=== PATIENT | male | born 1980 | race Hispanic/Latino ===

== ENCOUNTER 2018-03-28 11:37 | Emergency (ER) | payer SELFPAY ==
[2018-03-28] MEDS ORDERED: OXYMETAZOLINE HCL SPRAY 15 ML BOTTLE ONE (11:49)
== END 2018-03-28 12:14 | disposition home or self-care (01) ==
LOC: EDH 11:37
DX: R04.0 Epistaxis (principal); K74.60 Unspecified cirrhosis of liver
CPT/HCPCS: 30901

== ENCOUNTER 2018-03-30 10:53 | Emergency (ER) | payer OTHER ==
[2018-03-30] MEDS ORDERED: CHLORDIAZEPOXIDE HCL 25 MG CAP ONE (11:13)
[2018-03-30] MEDS ORDERED: LORAZEPAM 1 MG TABLET ONE (11:13)
== END 2018-03-30 12:09 | disposition home or self-care (01) ==
LOC: EDH 10:53
DX: F10.239 Alcohol dependence with withdrawal, unspecified (principal); R04.0 Epistaxis

== ENCOUNTER 2018-11-23 01:29 | Emergency (ER) | payer SELFPAY ==
[2018-11-23] MEDS ORDERED: ONDANSETRON HCL 4 MG/2 ML VIAL ONE (02:09)
[2018-11-23] MEDS ORDERED: CHLORDIAZEPOXIDE HCL 25 MG CAP ONE (02:22)
[2018-11-23] MEDS ORDERED: LORAZEPAM 2 MG/ML 1 ML VIAL ONE (02:23)
[2018-11-23 02:38] LABS: EOSINOPHILS % (AUTO) 0.4 % (0.0-8.0); HEMATOCRIT 25.9 % (42-54); LYMPHOCYTES % (AUTO) 15.8 % (21.0-51.0); MEAN CORPUSCULAR HEMOGLOBIN 23.7 pg (27.0-33.0); MEAN CORPUSCULAR HGB CONC 31.8 g/dL (32.0-36.0); MEAN CORPUSCULAR VOLUME 74.6 fL (79-99); MONOCYTES % (AUTO) 16.9 % (3.0-13.0); NEUTROPHILS % (AUTO) 65.9 % (40.0-77.0); NUCLEATED RED BLOOD CELLS 0.7 % (0.0-0.19); PLATELET COUNT (AUTO) 34 K/uL (130-400); RED BLOOD CELL COUNT(AUTO) 3.47 MIL/uL (4.50-6.20); RED CELL DISTRIBUTION WIDTH 19.2 % (11.0-15.5); WHITE BLOOD COUNT (AUTO) 3.6 K/uL (4.8-10.8)
[2018-11-23 02:48] LABS: CREATININE 1.1 mg/dL (0.5-1.5); POTASSIUM 3.1 mmol/L (3.5-5.1)
[2018-11-23 02:51] LABS: INR 1.31 (0.85-1.15); PARTIAL THROMBOPLASTIN TIME 24.7 SEC (26.3-35.5); PROTHROMBIN TIME 13.7 SEC (9.6-11.6)
[2018-11-23 02:52] LABS: ALBUMIN 3.5 g/dL (3.5-5.0); BILIRUBIN,TOTAL 1.5 mg/dL (0.2-1.0); TOTAL PROTEIN, SERUM 8.9 g/dL (6.0-8.3)
== END 2018-11-23 04:23 | disposition home or self-care (01) ==
LOC: EDH 01:29
DX: F10.129 Alcohol abuse with intoxication, unspecified (principal); E86.9 Volume depletion, unspecified; K74.60 Unspecified cirrhosis of liver; Y90.9 Presence of alcohol in blood, level not specified
CPT/HCPCS: 36415; 80053; 82550; 83605 ×2; 83690; 84484; 85025; 85610; 85730; 96361; 96374; 96375; 99283; J2060; J2405

== ENCOUNTER 2019-03-04 19:00 | Inpatient (IN) | payer OTHER ==
[~2019-03-04] VITALS: Ht 162.6 cm; Wt 81.8 kg
[2019-03-04] MEDS ORDERED: ONDANSETRON HCL 4 MG/2 ML VIAL ONE (19:43)
[2019-03-04] MEDS ORDERED: THIAMINE HCL 100 MG/ML 2ML VIAL ONE (19:43)
[2019-03-04] MEDS ORDERED: LORAZEPAM 2 MG/ML 1 ML VIAL ONE (19:44)
[2019-03-04 19:49] LABS: BASOPHILS % (AUTO) 0.4 % (0.0-5.0); LYMPHOCYTES % (AUTO) 6.5 % (21.0-51.0); MEAN CORPUSCULAR HEMOGLOBIN 22.2 pg (27.0-33.0); MEAN CORPUSCULAR HGB CONC 31.6 g/dL (32.0-36.0); MEAN CORPUSCULAR VOLUME 70.3 fL (79-99); MONOCYTES % (AUTO) 9.1 % (3.0-13.0); NUCLEATED RED BLOOD CELLS 0.8 % (0.0-0.19); PLATELET COUNT (AUTO) 47 K/uL (130-400); RED BLOOD CELL COUNT(AUTO) 3.27 MIL/uL (4.50-6.20); RED CELL DISTRIBUTION WIDTH 21.6 % (11.0-15.5)
[2019-03-04 20:05] LABS: ALANINE AMINOTRANSFERASE 64 U/L (12-78); ALBUMIN 3.5 g/dL (3.5-5.0); ALCOHOL, BLOOD < 3 mg/dL (0-10); ASPARTATE AMINOTRANSFERASE 125 U/L (10-37); BILIRUBIN,TOTAL 1.9 mg/dL (0.2-1.0); CARBON DIOXIDE 15 mmol/L (21-32); CHLORIDE 99 mmol/L (101-111); CREATINE KINASE, TOTAL 343 U/L (21-232); CREATININE 0.9 mg/dL (0.5-1.5); GLOMERULAR FILTR. RATE CALC 100 mL/min (>60); GLUCOSE,RANDOM 194 mg/dL (70-105); SODIUM SERUM 136 mmol/L (136-145); TOTAL PROTEIN, SERUM 8.3 g/dL (6.0-8.3); UREA NITROGEN, BLOOD 14 mg/dL (7-18)
[2019-03-04 20:07] LABS: INR 1.41 (0.85-1.15); PARTIAL THROMBOPLASTIN TIME 26.9 SEC (26.3-35.5); PROTHROMBIN TIME 14.7 SEC (9.6-11.6)
[2019-03-04 20:21] LABS: POTASSIUM 2.9 mmol/L (3.5-5.1)
[2019-03-04 20:24] LABS: PLATELET MORPHOLOGY COMMENT MARKED DECREASE
[2019-03-04] MEDS ORDERED: POTASSIUM CHLORIDE 20 MEQ ERTAB PO ONE (21:11)
[2019-03-04 21:21] LABS: ABG BASE EXCESS 2.1 mmol/L (-2.0-3.0); ABG HCO3 22.9 mmol/L (21.0-28.0); ABG OXYGEN SATURATION 98.3 % (95.0-99.0); ABG PCO2 27 mmHg (35-48)
[2019-03-04] MEDS ORDERED: ONDANSETRON HCL 4 MG/2 ML VIAL IV PRN (21:45)
[2019-03-04] MEDS ORDERED: LORAZEPAM 2 MG/ML 1 ML VIAL IVP PRN (21:45)
[2019-03-04] MEDS ORDERED: MORPHINE SULFATE 2 MG/ML 1ML SYG IV PRN (21:45)
[2019-03-04] MEDS: LEVETIRACETAM 1,000 MG in SODIUM CHLORIDE 0.9% 100 ML IV SCH (21:45)
[2019-03-04 21:47] LABS: AMPHET/METH SCREEN,URINE NEGATIVE (NEGATIVE); BARBITURATE SCREEN, URINE NEGATIVE (NEGATIVE); BENZODIAZEPINES SCREEN,URINE NEGATIVE (NEGATIVE); CANNABINOID SCREEN,URINE NEGATIVE (NEGATIVE); COCAINE SCREEN,URINE NEGATIVE (NEGATIVE); OPIATE SCREEN,URINE NEGATIVE (NEGATIVE); PHENCYCLIDINE SCREEN,URINE NEGATIVE (NEGATIVE)
[2019-03-04 21:56] LABS: % IRON SATURATION 17.6 % (30-44)
[2019-03-04] MEDS ORDERED: LIDOCAINE HCL-MPF 1% 2ML VIAL IVP PRN (22:00)
[2019-03-04] MEDS ORDERED: POTASSIUM CHLORIDE 10% ELIXIR 20 MEQ/15 ML UDCUP PO PRN (22:00)
[2019-03-04] MEDS ORDERED: POTASSIUM CHLORIDE 20MEQ/100ML 100 ML IV PRN (22:00)
[2019-03-04 22:03] LABS: RETICULOCYTE % (AUTO) 2.2 % (0.42-2.23)
[2019-03-04 22:20] VITALS: BP 150/68
--- NOTE | 2019-03-04 23:40 | NUR ---
TACHYCARDIA PTS HEART RATE IN THE 160S. INFORMED A MATT TAPIA. NO ORDERS GIVEN. WILL CONT TO MONITOR PTS STATUS.
[2019-03-04 23:49] VITALS: BP 149/72
[2019-03-04] MEDS: DIAZEPAM 5 MG TABLET PO SCH (23:55)
[2019-03-04] MEDS: POTASSIUM CHLORIDE 20 MEQ ERTAB PO PRN (23:55)
[2019-03-04] MEDS: SODIUM CHLORIDE 0.9% 1000ML 1,000 ML IV SCH (23:56)
[2019-03-05] MEDS ORDERED: NALT50TA PO (00:42)
[2019-03-05] MEDS ORDERED: ESCI10TA54 PO (00:42)
[2019-03-05] MEDS ORDERED: METO10TA3 PO (00:42)
[2019-03-05] MEDS ORDERED: ONDA4TAB9 PO (00:42)
[2019-03-05] MEDS ORDERED: THIA100T91 PO (00:42)
[2019-03-05] MEDS ORDERED: TRAZ-187 PO (00:42)
[2019-03-05] MEDS ORDERED: GABA-531 PO (00:42)
[2019-03-05] MEDS ORDERED: SODIUM CHLORIDE 0.9% 250 ML IV ONE (03:12)
--- NOTE | 2019-03-05 03:15 | NUR ---
FEBRILE INFORMED Kait TAPIA ABOUT PT BEING FEBRILE AT 101.1. ORDERED ACETAMINOPHEN.
[2019-03-05] MEDS ORDERED: ACETAMINOPHEN 325 MG TAB PO PRN (03:45)
[2019-03-05 03:56] VITALS: BP 133/72
[2019-03-05] MEDS: DIAZEPAM 5 MG TABLET PO SCH ×4 (04:16→20:52)
[2019-03-05] MEDS: POTASSIUM CHLORIDE 20 MEQ ERTAB PO PRN ×3 (07:04→16:20)
[2019-03-05] MEDS ORDERED: METOCLOPRAMIDE 10 MG TABLET PO PRN (07:30)
[2019-03-05] MEDS ORDERED: GABAPENTIN 300 MG CAPSULE PO PRN (07:30)
[2019-03-05] MEDS: SODIUM CHLORIDE 0.9% 1000ML 1,000 ML IV SCH (07:33)
[2019-03-05] MEDS ORDERED: LORAZEPAM 2 MG/ML 1 ML VIAL IVP PRN ×4 (07:45)
[2019-03-05] MEDS ORDERED: CHLORDIAZEPOXIDE HCL 25 MG CAP PO PRN ×3 (07:45)
[2019-03-05 08:37] VITALS: BP 145/89
[2019-03-05] MEDS ORDERED: NALTREXONE 50 MG PO SCH (09:00)
[2019-03-05] MEDS ORDERED: ENOXAPARIN SODIUM 30 MG/0.3 ML SQ SCH (09:00)
[2019-03-05] MEDS: CITALOPRAM 20 MG TABLET PO SCH (09:18)
[2019-03-05] MEDS: FAMOTIDINE/PF 20 MG/2 ML VIAL IV SCH ×2 (09:18→20:52)
[2019-03-05] MEDS: LEVETIRACETAM 500 MG TABLET PO SCH ×2 (09:18→20:51)
[2019-03-05] MEDS ORDERED: GADODIAMIDE 10 MMOL/20 ML VIAL IV ONE (10:34)
[2019-03-05 11:55] VITALS: BP 121/80
[2019-03-05 13:00] LABS: BASOPHILS % (AUTO) 0.6 % (0.0-5.0); EOSINOPHILS % (AUTO) 0.3 % (0.0-8.0); HEMATOCRIT 30.6 % (42-54); LYMPHOCYTES % (AUTO) 13.8 % (21.0-51.0); MEAN CORPUSCULAR HGB CONC 33.2 g/dL (32.0-36.0); MEAN CORPUSCULAR VOLUME 75.4 fL (79-99); MONOCYTES % (AUTO) 12.1 % (3.0-13.0); NEUTROPHILS % (AUTO) 73.2 % (40.0-77.0); NUCLEATED RED BLOOD CELLS 0.3 % (0.0-0.19); PLATELET COUNT (AUTO) 46 K/uL (130-400); RED BLOOD CELL COUNT(AUTO) 4.06 MIL/uL (4.50-6.20); RED CELL DISTRIBUTION WIDTH 23.6 % (11.0-15.5); WHITE BLOOD COUNT (AUTO) 6.2 K/uL (4.8-10.8)
[2019-03-05 13:10] LABS: CREATININE 0.8 mg/dL (0.5-1.5); POTASSIUM 3.2 mmol/L (3.5-5.1)
[2019-03-05] MEDS: M.V.I. IV [ADULT] 10 ML, FOLIC ACID 1 MG, THIAMINE HCL 100 MG in SODIUM CHLORIDE 0.9% 1... IV SCH (14:14)
[2019-03-05 16:35] VITALS: BP 122/78
--- NOTE | 2019-03-05 18:35 | NUR ---
D/C PLAN CM spoke to pts girlfriend regarding d/c planning. Pt with intermittent confusion. Pt lives with parents. States she lives in home as well and can assist in care if needed. States pt f/u with medical care at [facility]. No need verbalized. Plan to home. CM to f/u Addendum: 03/05/19 at 1837 by LUZ MARTINEZ CM Amended: Links added.
[2019-03-05 20:00] VITALS: BP 119/82
[2019-03-05] MEDS: TRAZODONE HCL 100 MG TABLET PO SCH (20:52)
[2019-03-05] MEDS: LEVETIRACETAM 1,000 MG in SODIUM CHLORIDE 0.9% 100 ML IV SCH (21:45)
[2019-03-05 23:46] VITALS: BP 111/73
[2019-03-06 03:46] VITALS: BP 120/69
[2019-03-06] MEDS: DIAZEPAM 5 MG TABLET PO SCH ×2 (04:14→10:20)
[2019-03-06 08:00] VITALS: BP 123/73
[2019-03-06] MEDS: LEVETIRACETAM 500 MG TABLET PO SCH ×2 (10:20→21:34)
[2019-03-06] MEDS: FAMOTIDINE/PF 20 MG/2 ML VIAL IV SCH ×2 (10:20→21:34)
[2019-03-06] MEDS: CITALOPRAM 20 MG TABLET PO SCH (10:21)
[2019-03-06] MEDS: M.V.I. IV [ADULT] 10 ML, FOLIC ACID 1 MG, THIAMINE HCL 100 MG in SODIUM CHLORIDE 0.9% 1... IV SCH (10:26)
[2019-03-06] MEDS: POTASSIUM CHLORIDE 20 MEQ ERTAB PO PRN ×3 (10:36→15:00)
[2019-03-06 12:00] VITALS: BP 145/86
[2019-03-06] MEDS ORDERED: DIAZEPAM 5 MG TABLET PO PRN (12:00)
[2019-03-06] MEDS: SODIUM CHLORIDE 0.9% 1000ML 1,000 ML IV SCH ×2 (14:13→14:14)
[2019-03-06 16:00] VITALS: BP 137/91
[2019-03-06] MEDS: CHLORDIAZEPOXIDE HCL 25 MG CAP PO PRN (18:03)
[2019-03-06 20:00] VITALS: BP 135/87
[2019-03-06] MEDS: TRAZODONE HCL 100 MG TABLET PO SCH (21:34)
--- NOTE | 2019-03-06 22:40 | NUR ---
ASSIST PT REQUESTED TO SHOWER. SALINE LOCKED PIV. WRAPPED PIV WITH PLASTIC. RE-ITERATED ON FALL PRECAUTIONS. PT VERBALIZES UNDERSTANDING. PCP IN TO ASSIST PT.
[2019-03-07] VITALS (7 sets, daily range): BP systolic 132–155; BP diastolic 80–97
[2019-03-07 05:12] LABS: HEMATOCRIT 29.9 % (42-54); MEAN CORPUSCULAR HEMOGLOBIN 25.5 pg (27.0-33.0); MEAN CORPUSCULAR HGB CONC 33.2 g/dL (32.0-36.0); MEAN CORPUSCULAR VOLUME 76.6 fL (79-99); NUCLEATED RED BLOOD CELLS 0.1 % (0.0-0.19); PLATELET COUNT (AUTO) 72 K/uL (130-400); RED BLOOD CELL COUNT(AUTO) 3.91 MIL/uL (4.50-6.20); RED CELL DISTRIBUTION WIDTH 23.7 % (11.0-15.5); WHITE BLOOD COUNT (AUTO) 4.5 K/uL (4.8-10.8)
[2019-03-07 05:28] LABS: CREATININE 0.7 mg/dL (0.5-1.5); MAGNESIUM 1.4 mg/dL (1.80-2.40); POTASSIUM 3.4 mmol/L (3.5-5.1)
[2019-03-07] MEDS: CHLORDIAZEPOXIDE HCL 25 MG CAP PO SCH ×3 (06:13→22:01)
[2019-03-07] MEDS: POTASSIUM CHLORIDE 20 MEQ ERTAB PO PRN ×2 (06:15→09:38)
[2019-03-07] MEDS: M.V.I. IV [ADULT] 10 ML, FOLIC ACID 1 MG, THIAMINE HCL 100 MG in SODIUM CHLORIDE 0.9% 1... IV SCH (09:36)
[2019-03-07] MEDS: CITALOPRAM 20 MG TABLET PO SCH (09:38)
[2019-03-07] MEDS: FOLIC ACID/VITAMIN B COMP W-C 1 MG CAPSULE PO SCH (09:38)
[2019-03-07] MEDS: FAMOTIDINE 20MG TAB 20 MG TAB PO SCH ×2 (09:38→20:32)
[2019-03-07] MEDS: LEVETIRACETAM 500 MG TABLET PO SCH ×2 (09:39→20:32)
[2019-03-07] MEDS: MAGNESIUM 2GM PREMIX 50ML 50 ML IV PRN (12:06)
[2019-03-07] MEDS: TRAZODONE HCL 100 MG TABLET PO SCH (20:32)
[2019-03-08] MEDS: CHLORDIAZEPOXIDE HCL 25 MG CAP PO PRN (00:49)
[2019-03-08 04:00] VITALS: BP 135/80
[2019-03-08 05:42] LABS: MEAN CORPUSCULAR HEMOGLOBIN 24.8 pg (27.0-33.0); MEAN CORPUSCULAR HGB CONC 32.2 g/dL (32.0-36.0); MEAN CORPUSCULAR VOLUME 77.1 fL (79-99); NUCLEATED RED BLOOD CELLS 0.1 % (0.0-0.19); PLATELET COUNT (AUTO) 105 K/uL (130-400); RED BLOOD CELL COUNT(AUTO) 4.03 MIL/uL (4.50-6.20); RED CELL DISTRIBUTION WIDTH 24.2 % (11.0-15.5); WHITE BLOOD COUNT (AUTO) 5.2 K/uL (4.8-10.8)
[2019-03-08] MEDS: CHLORDIAZEPOXIDE HCL 25 MG CAP PO SCH (05:55)
[2019-03-08 06:08] LABS: CREATININE 0.7 mg/dL (0.5-1.5); MAGNESIUM 1.7 mg/dL (1.80-2.40); POTASSIUM 3.5 mmol/L (3.5-5.1)
[2019-03-08] MEDS: POTASSIUM CHLORIDE 20 MEQ ERTAB PO PRN ×2 (06:40→10:24)
[2019-03-08] MEDS: MAGNESIUM 2GM PREMIX 50ML 50 ML IV PRN (06:41)
--- NOTE | 2019-03-08 06:41 | NUR ---
MEDS POTASSIUM LEVEL=3.5 AND MAGNESIUM LEVEL =1.7. STARTED ON REPLACEMENTS PER PROTOCOL. PT TOLERATED MEDS WELL. FOR MORE CARE. AND MANAGEMENT.
[2019-03-08 08:00] VITALS: BP 130/81
--- NOTE | 2019-03-08 08:00 | NUR ---
ALERT AND AWAKE DURING BEDSIDE REPORT STABLE ON ROOM AIR WITH NO APPARENT DISTRESS. DENIES PAIN WHEN ASKED, SOME HANDS TREMORS WAS NOTED. IVF IS INFUSING WITHOUT PROBLEM. PLAN OF CARE DISCUSSED AND PATIENT WAS ENCOURAGED TO QUIT DRINKING HE VOICED UNDERSTANDING.
[2019-03-08] MEDS ORDERED: Folic Acid/Vitamin B Comp W-C PO (09:41)
[2019-03-08] MEDS ORDERED: LEVE500T8 PO (09:41)
[2019-03-08] MEDS ORDERED: FAMO20TA8 PO (09:41)
[2019-03-08] MEDS ORDERED: FERR325T22 PO (09:50)
[2019-03-08] MEDS: LEVETIRACETAM 500 MG TABLET PO SCH (09:52)
[2019-03-08] MEDS: CITALOPRAM 20 MG TABLET PO SCH (09:52)
[2019-03-08] MEDS: FAMOTIDINE 20MG TAB 20 MG TAB PO SCH (09:53)
[2019-03-08] MEDS: FOLIC ACID/VITAMIN B COMP W-C 1 MG CAPSULE PO SCH (09:53)
[2019-03-08] MEDS ORDERED: MULT-1203 PO (09:57)
[2019-03-08] MEDS: M.V.I. IV [ADULT] 10 ML, FOLIC ACID 1 MG, THIAMINE HCL 100 MG in SODIUM CHLORIDE 0.9% 1... IV SCH (10:23)
[2019-03-08 12:00] VITALS: BP 114/75
--- NOTE | 2019-03-08 13:53 | NUR ---
DC PLAN PATIENT TO GO HOME. PATIENT GOES TO [facility] FOR MED MANAGEMENT. NO INSURANCE FOR REHAB PLACEMENT IN [place]. SPOKE TO NURSE AND WELDING MANAGER. PLAN TO DC HOME. Addendum: 03/08/19 at 1355 by OLI KELLER RN CM Amended: Links added.
--- NOTE | 2019-03-08 15:02 | NUR ---
DISCHARGE INSTRUCTIONS WERE PROVIDED INCLUDING ALCOHOL DRINKING CESSATION DISCUSSION WITH PRINTED EDUCATION MATERIALS. NEUROLOGY F/U WAS SCHEDULED AND GIVEN TO THE PATIENT AND HE VERBALIZED UNDERSTANDING. TELEMETRY MONITORING WAS DISCONTINUED AND THE IV ACCESS WAS REMOVED WITHOUT COMPLICATION. PATIENT LEFT THE UNIT IN STABLE CONDITION VIA WHEELCHAIR IN THE CARE OF HIS MOTHER.
== END 2019-03-08 15:12 | disposition home or self-care (01) | DRG 101 ==
LOC: EDH 19:00 → EDHIP 19:01 → 3AH 21:25
PROVIDERS: ADMIT Hospitalist; ATTEND Hospitalist
PROC: 30233N1 Transfusion of Nonautologous Red Blood Cells into Peripheral Vein, Percutaneous Approach (ICD-10-PCS; principal; 2019-03-04)
DX: G40.909 Epilepsy, unspecified, not intractable, without status epilepticus (principal); E87.6 Hypokalemia; F10.20 Alcohol dependence, uncomplicated; D63.8 Anemia in other chronic diseases classified elsewhere; D69.59 Other secondary thrombocytopenia; F32.9 Major depressive disorder, single episode, unspecified; G47.00 Insomnia, unspecified; K70.30 Alcoholic cirrhosis of liver without ascites; Z91.14 Patient's other noncompliance with medication regimen
CPT/HCPCS: 36415; 36430; 36600; 70450; 70553; 71045; 80048; 80053; 80305; 82550; 82607; 82728; 82803; 83735; 85025; 85027; 85610; 85730; 86850; 86900; 86901; 86922; 93005; 99291; A9579; G0378; G0480; J1953; J2060; J2405; J3411; J3475; J3480; J3490; J7030; P9016

== ENCOUNTER 2019-06-12 13:32 | Emergency (ER) | payer OTHER ==
[~2019-06-12 13:32] MED LIST: ESCI10TA54 PO; FAMO20TA8 PO; FERR325T22 PO; Folic Acid/Vitamin B Comp W-C PO; GABA-531 PO; LEVE500T8 PO; METO10TA3 PO; MULT-1203 PO; NALT50TA PO; ONDA4TAB9 PO; THIA100T91 PO; TRAZ-187 PO
[2019-06-12] MEDS ORDERED: ONDANSETRON HCL 4 MG/2 ML VIAL ONE (14:04)
[2019-06-12] MEDS ORDERED: SODIUM CHLORIDE 0.9% 1000ML 1,000 ML IV ONE (14:04)
[2019-06-12] MEDS ORDERED: DIAZEPAM 5 MG TABLET ONE (14:04)
[2019-06-12 14:32] LABS: EOSINOPHILS % (AUTO) 0.4 % (0.0-8.0); HEMATOCRIT 25.3 % (42-54); LYMPHOCYTES % (AUTO) 23.2 % (21.0-51.0); MEAN CORPUSCULAR HGB CONC 31.7 g/dL (32.0-36.0); MEAN CORPUSCULAR VOLUME 75.7 fL (79-99); MONOCYTES % (AUTO) 7.6 % (3.0-13.0); NEUTROPHILS % (AUTO) 67.8 % (40.0-77.0); NUCLEATED RED BLOOD CELLS 0.1 % (0.0-0.19); PLATELET COUNT (AUTO) 79 K/uL (130-400); RED BLOOD CELL COUNT(AUTO) 3.34 MIL/uL (4.50-6.20); RED CELL DISTRIBUTION WIDTH 21.9 % (11.0-15.5); WHITE BLOOD COUNT (AUTO) 5.2 K/uL (4.8-10.8)
[2019-06-12 14:43] LABS: CREATININE 0.8 mg/dL (0.5-1.5); POTASSIUM 3.9 mmol/L (3.5-5.1)
[2019-06-12 15:06] LABS: PLATELET MORPHOLOGY COMMENT DECREASED
[2019-06-12 18:17] LABS: AMPHET/METH SCREEN,URINE NEGATIVE (NEGATIVE); BARBITURATE SCREEN, URINE NEGATIVE (NEGATIVE); BENZODIAZEPINES SCREEN,URINE NEGATIVE (NEGATIVE); CANNABINOID SCREEN,URINE NEGATIVE (NEGATIVE); COCAINE SCREEN,URINE NEGATIVE (NEGATIVE); OPIATE SCREEN,URINE NEGATIVE (NEGATIVE); PHENCYCLIDINE SCREEN,URINE NEGATIVE (NEGATIVE)
== END 2019-06-12 19:09 | disposition home or self-care (01) ==
LOC: EDH 13:32
DX: F10.10 Alcohol abuse, uncomplicated (principal); Y90.9 Presence of alcohol in blood, level not specified
CPT/HCPCS: 36415; 70450; 80048; 80305; 85025; 93005; 96374; 96375; 99285; G0480; J2405; J7030

== ENCOUNTER 2020-10-26 12:35 | Inpatient (IN) | payer OTHER ==
[~2020-10-26] VITALS: Ht 170.2 cm; Wt 79.8 kg
[~2020-10-26 12:35] MED LIST changes: +LACT PO; +LEVE-43 PO; -LEVE500T8 PO; +MAGOX PO; +ONDA-104 PO; -ONDA4TAB9 PO; +PANT40TA PO
[2020-10-26] MEDS ORDERED: PANTOPRAZOLE 40 MG/VIAL ONE ×2 (13:47→23:03)
[2020-10-26] MEDS ORDERED: CEFTRIAXONE SODIUM 1 GM ONE (13:48)
[2020-10-26] MEDS ORDERED: OCTREOTIDE ACETATE 100 MCG/ML AMP ONE (13:49)
[2020-10-26] MEDS ORDERED: SODIUM CHLORIDE 0.9% 100 ML IV ONE ×2 (13:52→23:03)
[2020-10-26 14:07] LABS: BASOPHILS % (AUTO) 1.7 % (0.0-5.0); EOSINOPHILS % (AUTO) 0.7 % (0.0-8.0); HEMATOCRIT 23.4 % (42-54); LYMPHOCYTES % (AUTO) 27.7 % (21.0-51.0); MEAN CORPUSCULAR HEMOGLOBIN 31.8 pg (27.0-33.0); MEAN CORPUSCULAR HGB CONC 33.3 g/dL (32.0-36.0); MEAN CORPUSCULAR VOLUME 95.5 fL (79-99); MONOCYTES % (AUTO) 10.7 % (3.0-13.0); NEUTROPHILS % (AUTO) 58.2 % (40.0-77.0); PLATELET COUNT (AUTO) 30 K/uL (130-400); RED BLOOD CELL COUNT(AUTO) 2.45 MIL/uL (4.50-6.20); RED CELL DISTRIBUTION WIDTH 20.2 % (11.0-15.5); WHITE BLOOD COUNT (AUTO) 4.1 K/uL (4.8-10.8)
[2020-10-26 14:26] LABS: INR 2.38 (0.85-1.15); PROTHROMBIN TIME 23.5 SEC (9.6-11.6)
[2020-10-26 14:27] LABS: PARTIAL THROMBOPLASTIN TIME 46.5 SEC (26.3-35.5)
[2020-10-26 14:35] LABS: ALBUMIN 1.9 g/dL (3.5-5.0); CREATININE 0.7 mg/dL (0.5-1.5); TOTAL PROTEIN, SERUM 8.3 g/dL (6.0-8.3)
[2020-10-26] MEDS ORDERED: POTASSIUM CHLORIDE 20 MEQ/100 ML BAG IV SCH (15:00)
[2020-10-26] MEDS ORDERED: OCTREOTIDE ACETATE 1,250 MCG in SODIUM CHLORIDE 0.9% 250 ML IV SCH (15:00)
[2020-10-26] MEDS ORDERED: PANTOPRAZOLE SODIUM 80 MG in SODIUM CHLORIDE 0.9% 100 ML IVP SCH (15:00)
[2020-10-26] MEDS ORDERED: ALBUMIN (HUMAN) 25% 50 ML IV ONE (15:15)
[2020-10-26] MEDS ORDERED: DiphenhydrAMINE HCL 50 MG/ML VIAL IV PRN (15:15)
[2020-10-26] MEDS ORDERED: DIPHENHYDRAMINE HCL 25 MG CAPSULE PO PRN (15:15)
[2020-10-26] MEDS ORDERED: LACTULOSE 20 GM/30 ML UDCUP PO PRN (15:15)
[2020-10-26] MEDS ORDERED: NITROGLYCERIN 0.4 MG SL TAB SL PRN (15:15)
[2020-10-26] MEDS: METRONIDAZOLE 500MG/100ML BAG 100 ML IV SCH ×2 (15:15→22:21)
[2020-10-26] MEDS: CEFTRIAXONE SODIUM 1 GM IV SCH (15:15)
[2020-10-26] MEDS: LACTATED RINGERS 1000ML 1,000 ML IV SCH (15:15)
[2020-10-26] MEDS ORDERED: GUAIFENESIN-DM 200/20 MG 10 ML PO PRN (15:15)
[2020-10-26] MEDS ORDERED: MAG HYDROX/AL HYDROX/SIMETH ES 30 ML SUSP UDCUP PO PRN (15:15)
[2020-10-26] MEDS ORDERED: ACETAMINOPHEN 325 MG TAB PO PRN ×2 (15:15)
[2020-10-26] MEDS ORDERED: PHARMACY COMMUNICATION MISC PRN (15:30)
[2020-10-26] MEDS ORDERED: COMPOUND IV MISC 1 EACH IVSOLN MISC PRN (15:30)
[2020-10-26] MEDS ORDERED: PROMETHAZINE HCL 25 MG TABLET PO PRN (15:30)
[2020-10-26] MEDS: THIAMINE HCL 100 MG, FOLIC ACID 1 MG, M.V.I. IV [ADULT] 10 ML in SODIUM CHLORIDE 0.9% 1... IV SCH (15:30)
[2020-10-26] MEDS ORDERED: LORAZEPAM 2 MG/ML 1 ML VIAL IVP PRN (15:30)
[2020-10-26 15:43] LABS: MAGNESIUM 1.5 mg/dL (1.80-2.40); PHOSPHORUS 2.5 mg/dL (2.5-4.9)
[2020-10-26] MEDS ORDERED: POTASSIUM CHLORIDE 20MEQ/100ML 100 ML IV ONE (17:12)
[2020-10-26] MEDS ORDERED: METRONIDAZOLE 500MG/100ML BAG 100 ML ONE (17:13)
[2020-10-26] MEDS ORDERED: MIDODRINE HCL 5 MG TABLET ONE (17:13)
[2020-10-26] MEDS ORDERED: LIDOCAINE HCL-MPF 1% 2ML VIAL ONE (17:35)
[2020-10-26 18:30] VITALS: BP 109/57
[2020-10-26] MEDS: LEVETIRACETAM 500 MG in SODIUM CHLORIDE 0.9% 100 ML IV SCH (18:44)
[2020-10-26 18:45] LABS: HEMATOCRIT 21.9 % (42-54)
[2020-10-26 20:00] VITALS: BP 116/76
[2020-10-26] MEDS ORDERED: MIDODRINE HCL 5 MG TABLET PO SCH (21:00)
[2020-10-26] MEDS: POTASSIUM CHLORIDE 20 MEQ ERTAB PO PRN (22:21)
[2020-10-26] MEDS: ONDANSETRON HCL 4 MG/2 ML VIAL IV PRN (22:31)
[2020-10-26 23:27] LABS: HEMATOCRIT 22.2 % (42-54)
[2020-10-27] VITALS (19 sets, daily range): BP systolic 93–136; BP diastolic 52–85
[2020-10-27] MEDS: LORAZEPAM 2 MG/ML 1 ML VIAL IVP PRN ×3 (01:02→12:00)
[2020-10-27] MEDS: LACTATED RINGERS 1000ML 1,000 ML IV SCH (01:02)
[2020-10-27 02:59] LABS: HEMATOCRIT 20.9 % (42-54)
[2020-10-27] MEDS ORDERED: SODIUM CHLORIDE 0.9% 250 ML IV ONE (03:52)
[2020-10-27] MEDS: METRONIDAZOLE 500MG/100ML BAG 100 ML IV SCH ×3 (07:45→22:56)
[2020-10-27 08:31] LABS: HEMATOCRIT 24.3 % (42-54)
[2020-10-27] MEDS ORDERED: LIDOCAINE HCL-MPF 1% 2ML VIAL ONE (08:33)
[2020-10-27] MEDS ORDERED: PANTOPRAZOLE SODIUM 80 MG in SODIUM CHLORIDE 0.9% 100 ML IV SCH (09:00)
[2020-10-27] MEDS: FOLIC ACID 1 MG TABLET PO SCH (09:00)
[2020-10-27] MEDS: THIAMINE HCL 100 MG/ML 2ML VIAL IM SCH (09:00)
[2020-10-27 09:15] LABS: CREATININE 1.4 mg/dL (0.5-1.5); POTASSIUM 3.3 mmol/L (3.5-5.1)
[2020-10-27] MEDS: MAGNESIUM 2GM PREMIX 50ML 50 ML IV PRN ×3 (09:19→21:56)
[2020-10-27] MEDS ORDERED: PHENYLEPHRINE HCL 10 MG/ML 1ML VIAL IV ONE (10:07)
[2020-10-27] MEDS ORDERED: PROPOFOL 10 MG/ML 20ML VIAL IV ONE ×2 (10:07→10:13)
[2020-10-27] MEDS ORDERED: SODIUM CHLORIDE 0.9% 1000ML 1,000 ML IV ONE (10:10)
[2020-10-27 10:12] LABS: HEMATOCRIT 24.4 % (42-54)
[2020-10-27 10:36] LABS: ALBUMIN 1.7 g/dL (3.5-5.0); TOTAL PROTEIN, SERUM 7.7 g/dL (6.0-8.3)
[2020-10-27 10:38] LABS: BILIRUBIN,DIRECT 15.5 mg/dL (0.0-0.3); BILIRUBIN,TOTAL 17.6 mg/dL (0.2-1.0)
[2020-10-27] MEDS: POTASSIUM CHLORIDE 20MEQ/100ML 100 ML IV PRN (11:30)
[2020-10-27] MEDS ORDERED: CHLORDIAZEPOXIDE HCL 25 MG CAP PO SCH (12:15)
[2020-10-27] MEDS: LEVETIRACETAM 500 MG in SODIUM CHLORIDE 0.9% 100 ML IV SCH ×2 (13:13→20:32)
[2020-10-27] MEDS: CEFTRIAXONE SODIUM 1 GM IV SCH (13:19)
[2020-10-27] MEDS: MULTIVITAMIN TABLET PO SCH (14:01)
[2020-10-27] MEDS: SUCRALFATE 1 GM TABLET PO SCH ×2 (14:02→18:40)
[2020-10-27] MEDS: PANTOPRAZOLE SODIUM 40 MG TABLET.DR PO SCH ×2 (14:02→20:29)
[2020-10-27] MEDS: LACTULOSE 20 GM/30 ML UDCUP PO SCH ×2 (14:02→20:29)
[2020-10-27] MEDS: THIAMINE HCL 100 MG, FOLIC ACID 1 MG, M.V.I. IV [ADULT] 10 ML in SODIUM CHLORIDE 0.9% 1... IV SCH (21:52)
[2020-10-27] MEDS: ONDANSETRON HCL 4 MG/2 ML VIAL IV PRN (22:56)
[2020-10-27] MEDS: POTASSIUM CHLORIDE 20 MEQ ERTAB PO PRN (22:57)
[2020-10-27] MEDS: CHLORDIAZEPOXIDE HCL 25 MG CAP PO PRN (22:57)
[2020-10-28] VITALS (13 sets, daily range): BP systolic 109–144; BP diastolic 67–88
[2020-10-28] MEDS: POTASSIUM CHLORIDE 20 MEQ ERTAB PO PRN (00:55)
[2020-10-28] MEDS: SUCRALFATE 1 GM TABLET PO SCH ×4 (00:55→20:42)
[2020-10-28] MEDS: PHARMACY COMMUNICATION MISC SCH ×3 (02:00→19:19)
[2020-10-28] MEDS: LACTULOSE 20 GM/30 ML UDCUP PO SCH ×3 (03:24→19:45)
[2020-10-28 05:17] LABS: BASOPHILS % (AUTO) 0.5 % (0.0-5.0); EOSINOPHILS % (AUTO) 0.2 % (0.0-8.0); HEMATOCRIT 23.5 % (42-54); LYMPHOCYTES % (AUTO) 8.3 % (21.0-51.0); MONOCYTES % (AUTO) 11.6 % (3.0-13.0); NUCLEATED RED BLOOD CELLS 0.7 % (0.0-0.19); PLATELET COUNT (AUTO) 23 K/uL (130-400); RED CELL DISTRIBUTION WIDTH 19.7 % (11.0-15.5); WHITE BLOOD COUNT (AUTO) 4.2 K/uL (4.8-10.8)
[2020-10-28] MEDS: METRONIDAZOLE 500MG/100ML BAG 100 ML IV SCH (05:28)
[2020-10-28 05:44] LABS: ALBUMIN 1.7 g/dL (3.5-5.0); CREATININE 0.9 mg/dL (0.5-1.5); MAGNESIUM 2.7 mg/dL (1.80-2.40); TOTAL PROTEIN, SERUM 7.7 g/dL (6.0-8.3)
[2020-10-28 06:03] LABS: BILIRUBIN,DIRECT 15.4 mg/dL (0.0-0.3); INR 2.49 (0.85-1.15); POTASSIUM 2.8 mmol/L (3.5-5.1); PROTHROMBIN TIME 24.5 SEC (9.6-11.6)
[2020-10-28 06:04] LABS: BILIRUBIN,TOTAL 18.5 mg/dL (0.2-1.0)
[2020-10-28] MEDS: POTASSIUM CHLORIDE 10% ELIXIR 20 MEQ/15 ML UDCUP PO PRN ×3 (06:46→22:29)
[2020-10-28] MEDS: POTASSIUM CHLORIDE 20MEQ/100ML 100 ML IV PRN ×3 (06:47→20:33)
[2020-10-28] MEDS: FOLIC ACID 1 MG TABLET PO SCH (09:00)
[2020-10-28] MEDS: MULTIVITAMIN TABLET PO SCH (09:00)
[2020-10-28] MEDS: LEVETIRACETAM 500 MG in SODIUM CHLORIDE 0.9% 100 ML IV SCH ×2 (09:01→21:08)
[2020-10-28] MEDS: THIAMINE HCL 100 MG/ML 2ML VIAL IM SCH (09:03)
[2020-10-28] MEDS ORDERED: PHARMACY COMMUNICATION MISC SCH (10:45)
[2020-10-28] MEDS ORDERED: ZOSYN 3.375GM+NS 50ML 50 ML IV SCH (10:45)
[2020-10-28] MEDS ORDERED: LACTULOSE 20 GM/30 ML UDCUP PR SCH (11:00)
[2020-10-28] MEDS ORDERED: LIDOCAINE HCL-MPF 1% 2ML VIAL ONE (11:18)
[2020-10-28] MEDS: CEFTRIAXONE SODIUM 1 GM IVP SCH (12:59)
[2020-10-28 13:30] LABS: CREATININE 0.7 mg/dL (0.5-1.5)
[2020-10-28 13:33] LABS: POTASSIUM 2.9 mmol/L (3.5-5.1)
[2020-10-28] MEDS ORDERED: PHYTONADIONE 10 MG/1 ML AMP IM SCH (13:45)
[2020-10-28 14:00] LABS: HEMATOCRIT 24.4 % (42-54)
[2020-10-28] MEDS ORDERED: OCTREOTIDE ACETATE 100 MCG/ML AMP IV SCH (14:15)
[2020-10-28 14:34] LABS: INR 2.94 (0.85-1.15); PROTHROMBIN TIME 28.5 SEC (9.6-11.6)
[2020-10-28 14:35] LABS: PARTIAL THROMBOPLASTIN TIME 55.8 SEC (26.3-35.5)
[2020-10-28] MEDS: LORAZEPAM 2 MG/ML 1 ML VIAL IVP PRN (15:12)
[2020-10-28] MEDS: LACTATED RINGERS 1000ML 1,000 ML IV SCH (15:12)
[2020-10-28] MEDS ORDERED: THIAMINE HCL 100 MG/ML 2ML VIAL IVP SCH (15:15)
[2020-10-28] MEDS ORDERED: FOLIC ACID 5 MG/ML 10 ML VIAL IV SCH (15:15)
[2020-10-28] MEDS ORDERED: COMPOUND IV REFRIGERATED 1 EACH IVSOLN MISC PRN (16:15)
[2020-10-28] MEDS ORDERED: PEG 3350/NA SULF,BICARB,CL/KCL 4000 ML SOLN PO SCH (18:00)
[2020-10-28 19:02] LABS: HEMATOCRIT 21.7 % (42-54)
[2020-10-28 19:11] LABS: CREATININE 0.6 mg/dL (0.5-1.5); POTASSIUM 3.3 mmol/L (3.5-5.1)
[2020-10-28] MEDS: PANTOPRAZOLE 40 MG/VIAL IVP SCH (19:45)
[2020-10-28] MEDS: CHLORDIAZEPOXIDE HCL 25 MG CAP PO PRN ×2 (20:26→22:24)
[2020-10-28] MEDS: ONDANSETRON HCL 4 MG/2 ML VIAL IV PRN (20:26)
[2020-10-28] MEDS ORDERED: OXYMETAZOLINE HCL SPRAY 15 ML BOTTLE EN PRN (20:30)
[2020-10-29] VITALS (19 sets, daily range): BP systolic 116–153; BP diastolic 75–93
[2020-10-29] MEDS: PHARMACY COMMUNICATION MISC SCH ×4 (02:00→21:36)
[2020-10-29] MEDS: LORAZEPAM 2 MG/ML 1 ML VIAL IVP PRN ×2 (02:10→06:10)
[2020-10-29] MEDS: LACTATED RINGERS 1000ML 1,000 ML IV SCH ×3 (02:17→20:24)
[2020-10-29] MEDS: LACTULOSE 20 GM/30 ML UDCUP PO SCH ×3 (02:45→21:27)
[2020-10-29 03:27] LABS: HEMATOCRIT 26.1 % (42-54); MEAN CORPUSCULAR HEMOGLOBIN 31.5 pg (27.0-33.0); MEAN CORPUSCULAR HGB CONC 33.3 g/dL (32.0-36.0); MEAN CORPUSCULAR VOLUME 94.6 fL (79-99); RED BLOOD CELL COUNT(AUTO) 2.76 MIL/uL (4.50-6.20); RED CELL DISTRIBUTION WIDTH 19.9 % (11.0-15.5); WHITE BLOOD COUNT (AUTO) 5.9 K/uL (4.8-10.8)
[2020-10-29 03:36] LABS: CREATININE 0.6 mg/dL (0.5-1.5); POTASSIUM 3.3 mmol/L (3.5-5.1)
[2020-10-29] MEDS: POTASSIUM CHLORIDE 20MEQ/100ML 100 ML IV PRN (03:44)
[2020-10-29 04:19] LABS: INR 2.55 (0.85-1.15); PROTHROMBIN TIME 25.1 SEC (9.6-11.6)
[2020-10-29 04:20] LABS: PARTIAL THROMBOPLASTIN TIME 50.9 SEC (26.3-35.5)
[2020-10-29 08:06] LABS: ALBUMIN 1.6 g/dL (3.5-5.0); MAGNESIUM 1.9 mg/dL (1.80-2.40); TOTAL PROTEIN, SERUM 6.9 g/dL (6.0-8.3)
[2020-10-29] MEDS: FOLIC ACID 1 MG TABLET PO SCH (08:50)
[2020-10-29] MEDS: MULTIVITAMIN TABLET PO SCH (08:50)
[2020-10-29] MEDS: THIAMINE HCL 100 MG/ML 2ML VIAL IM SCH (08:51)
[2020-10-29] MEDS: CHLORDIAZEPOXIDE HCL 25 MG CAP PO PRN ×3 (08:52→21:25)
[2020-10-29] MEDS: PANTOPRAZOLE 40 MG/VIAL IVP SCH ×2 (08:52→20:27)
[2020-10-29] MEDS: FOLIC ACID 5 MG/ML 10 ML VIAL IV SCH (09:00)
[2020-10-29] MEDS ORDERED: PEG 3350/NA SULF,BICARB,CL/KCL 4000 ML SOLN PO SCH (09:00)
[2020-10-29 09:58] LABS: BILIRUBIN,DIRECT 15.1 mg/dL (0.0-0.3); BILIRUBIN,TOTAL 18.6 mg/dL (0.2-1.0)
[2020-10-29] MEDS: CEFTRIAXONE SODIUM 1 GM IVP SCH (13:42)
[2020-10-29] MEDS: SUCRALFATE 1 GM TABLET PO SCH ×3 (13:42→21:12)
[2020-10-29] MEDS: LEVETIRACETAM 500 MG in SODIUM CHLORIDE 0.9% 100 ML IV SCH ×2 (13:44→20:27)
[2020-10-29] MEDS: THIAMINE HCL 100 MG/ML 2ML VIAL IVP SCH (13:44)
[2020-10-29] MEDS ORDERED: SODIUM CHLORIDE 0.9% 500ML 500 ML IV ONE (19:47)
[2020-10-29 23:13] LABS: HEMATOCRIT 23.8 % (42-54)
[2020-10-30] VITALS (23 sets, daily range): BP systolic 109–153; BP diastolic 73–97
[2020-10-30] MEDS: LACTULOSE 20 GM/30 ML UDCUP PO SCH ×2 (03:30→17:25)
[2020-10-30] MEDS: LORAZEPAM 2 MG/ML 1 ML VIAL IVP PRN (05:05)
[2020-10-30 06:27] LABS: CREATININE 0.5 mg/dL (0.5-1.5); POTASSIUM 3.1 mmol/L (3.5-5.1)
[2020-10-30 06:29] LABS: BASOPHILS % (AUTO) 0.7 % (0.0-5.0); EOSINOPHILS % (AUTO) 0.8 % (0.0-8.0); LYMPHOCYTES % (AUTO) 14.8 % (21.0-51.0); MEAN CORPUSCULAR HEMOGLOBIN 32.1 pg (27.0-33.0); MEAN CORPUSCULAR HGB CONC 33.2 g/dL (32.0-36.0); MEAN CORPUSCULAR VOLUME 96.7 fL (79-99); MONOCYTES % (AUTO) 20.4 % (3.0-13.0); NEUTROPHILS % (AUTO) 62.5 % (40.0-77.0); NUCLEATED RED BLOOD CELLS 0.5 % (0.0-0.19); PLATELET COUNT (AUTO) 65 K/uL (130-400); RED BLOOD CELL COUNT(AUTO) 2.12 MIL/uL (4.50-6.20); RED CELL DISTRIBUTION WIDTH 20.5 % (11.0-15.5)
[2020-10-30 06:34] LABS: HEMATOCRIT 20.5 % (42-54)
[2020-10-30] MEDS ORDERED: LIDOCAINE HCL-MPF 1% 2ML VIAL ONE (06:35)
[2020-10-30] MEDS: POTASSIUM CHLORIDE 20MEQ/100ML 100 ML IV PRN (06:36)
[2020-10-30 06:44] LABS: INR 1.86 (0.85-1.15); PROTHROMBIN TIME 18.8 SEC (9.6-11.6)
[2020-10-30 06:46] LABS: PARTIAL THROMBOPLASTIN TIME 30.6 SEC (26.3-35.5)
[2020-10-30] MEDS: THIAMINE HCL 100 MG/ML 2ML VIAL IVP SCH (08:43)
[2020-10-30] MEDS: MULTIVITAMIN TABLET PO SCH (08:43)
[2020-10-30] MEDS: CHLORDIAZEPOXIDE HCL 25 MG CAP PO PRN ×3 (08:43→23:30)
[2020-10-30] MEDS: PANTOPRAZOLE 40 MG/VIAL IVP SCH ×2 (08:43→20:15)
[2020-10-30] MEDS: SUCRALFATE 1 GM TABLET PO SCH ×3 (08:44→20:16)
[2020-10-30] MEDS ORDERED: PHYTONADIONE 10 MG/1 ML AMP ONE (08:46)
[2020-10-30] MEDS: PHYTONADIONE 10 MG in SODIUM CHLORIDE 0.9% 50 ML SQ SCH (09:06)
[2020-10-30] MEDS: LEVETIRACETAM 500 MG in SODIUM CHLORIDE 0.9% 100 ML IV SCH ×2 (09:59→20:14)
[2020-10-30] MEDS ORDERED: PHYTONADIONE 10 MG/1 ML AMP IV SCH (10:00)
[2020-10-30] MEDS: PHARMACY COMMUNICATION MISC SCH ×2 (10:00→18:00)
[2020-10-30] MEDS ORDERED: SODIUM CHLORIDE 0.9% 500ML 500 ML IV ONE (10:11)
[2020-10-30] MEDS: LACTATED RINGERS 1000ML 1,000 ML IV SCH (16:45)
[2020-10-30] MEDS: CEFTRIAXONE SODIUM 1 GM IVP SCH (17:25)
[2020-10-30] MEDS: OCTREOTIDE ACETATE 1,250 MCG in SODIUM CHLORIDE 0.9% 250 ML IV SCH (17:26)
[2020-10-30] MEDS: POTASSIUM CHLORIDE 10% ELIXIR 20 MEQ/15 ML UDCUP PO PRN ×3 (20:16→23:30)
[2020-10-31] VITALS (18 sets, daily range): BP systolic 114–150; BP diastolic 47–93
[2020-10-31] MEDS: LACTULOSE 20 GM/30 ML UDCUP PO SCH ×4 (01:18→22:11)
[2020-10-31] MEDS: PHARMACY COMMUNICATION MISC SCH ×3 (02:00→18:00)
[2020-10-31 03:43] LABS: BASOPHILS % (AUTO) 0.8 % (0.0-5.0); EOSINOPHILS % (AUTO) 1.3 % (0.0-8.0); HEMATOCRIT 27.6 % (42-54); LYMPHOCYTES % (AUTO) 18.3 % (21.0-51.0); MEAN CORPUSCULAR HEMOGLOBIN 32.2 pg (27.0-33.0); MEAN CORPUSCULAR VOLUME 97.5 fL (79-99); MONOCYTES % (AUTO) 21.5 % (3.0-13.0); NEUTROPHILS % (AUTO) 56.7 % (40.0-77.0); NUCLEATED RED BLOOD CELLS 0.3 % (0.0-0.19); PLATELET COUNT (AUTO) 73 K/uL (130-400); RED BLOOD CELL COUNT(AUTO) 2.83 MIL/uL (4.50-6.20); RED CELL DISTRIBUTION WIDTH 21.2 % (11.0-15.5); WHITE BLOOD COUNT (AUTO) 6.3 K/uL (4.8-10.8)
[2020-10-31] MEDS: LORAZEPAM 2 MG/ML 1 ML VIAL IVP PRN (03:50)
[2020-10-31] MEDS: LACTATED RINGERS 1000ML 1,000 ML IV SCH ×3 (03:51→12:45)
[2020-10-31 04:07] LABS: ALBUMIN 1.9 g/dL (3.5-5.0); CREATININE 0.6 mg/dL (0.5-1.5); POTASSIUM 3.5 mmol/L (3.5-5.1); TOTAL PROTEIN, SERUM 7.2 g/dL (6.0-8.3)
[2020-10-31 04:33] LABS: BILIRUBIN,TOTAL 22.9 mg/dL (0.2-1.0)
[2020-10-31 04:37] LABS: INR 2.22 (0.85-1.15); PROTHROMBIN TIME 22.1 SEC (9.6-11.6)
[2020-10-31 04:39] LABS: PARTIAL THROMBOPLASTIN TIME 33.1 SEC (26.3-35.5)
[2020-10-31] MEDS: THIAMINE HCL 100 MG/ML 2ML VIAL IVP SCH (08:00)
[2020-10-31] MEDS: POTASSIUM CHLORIDE 10% ELIXIR 20 MEQ/15 ML UDCUP PO PRN (08:01)
[2020-10-31] MEDS: SUCRALFATE 1 GM TABLET PO SCH ×3 (08:02→22:11)
[2020-10-31] MEDS: MULTIVITAMIN TABLET PO SCH (08:02)
[2020-10-31] MEDS: RIFAXIMIN 550 MG TABLET PO SCH ×2 (08:03→22:11)
[2020-10-31] MEDS: CHLORDIAZEPOXIDE HCL 25 MG CAP PO PRN (08:03)
[2020-10-31] MEDS: PANTOPRAZOLE 40 MG/VIAL IVP SCH ×2 (08:04→21:58)
[2020-10-31] MEDS: FOLIC ACID 5 MG/ML 10 ML VIAL IV SCH ×2 (08:05→08:37)
[2020-10-31] MEDS: LEVETIRACETAM 500 MG in SODIUM CHLORIDE 0.9% 100 ML IV SCH ×2 (08:07→21:58)
[2020-10-31] MEDS: PHYTONADIONE 10 MG in SODIUM CHLORIDE 0.9% 50 ML SQ SCH (08:38)
[2020-10-31] MEDS: CEFTRIAXONE SODIUM 1 GM IVP SCH (11:45)
[2020-10-31] MEDS ORDERED: DEXTROSE 5%-LACTATED RINGERS 1,000 ML IV SCH (13:00)
[2020-10-31] MEDS: DEXTROSE 5%-WATER 1,000 ML IV SCH (16:00)
[2020-11-01] MEDS: LACTULOSE 20 GM/30 ML UDCUP PO SCH ×3 (03:44→18:40)
[2020-11-01 04:06] LABS: BASOPHILS % (AUTO) 0.9 % (0.0-5.0); EOSINOPHILS % (AUTO) 1.9 % (0.0-8.0); HEMATOCRIT 27.8 % (42-54); NEUTROPHILS % (AUTO) 50.3 % (40.0-77.0); PLATELET COUNT (AUTO) 74 K/uL (130-400); RED BLOOD CELL COUNT(AUTO) 2.78 MIL/uL (4.50-6.20); RED CELL DISTRIBUTION WIDTH 21.2 % (11.0-15.5); WHITE BLOOD COUNT (AUTO) 5.7 K/uL (4.8-10.8)
[2020-11-01 04:30] LABS: INR 2.14 (0.85-1.15); PROTHROMBIN TIME 21.4 SEC (9.6-11.6)
[2020-11-01 04:31] LABS: PARTIAL THROMBOPLASTIN TIME 38.6 SEC (26.3-35.5)
[2020-11-01 04:36] VITALS: BP 115/78
[2020-11-01 04:54] LABS: ALBUMIN 1.8 g/dL (3.5-5.0); CREATININE 0.6 mg/dL (0.5-1.5); POTASSIUM 3.5 mmol/L (3.5-5.1); TOTAL PROTEIN, SERUM 7.2 g/dL (6.0-8.3)
[2020-11-01 05:00] LABS: BILIRUBIN,TOTAL 24.9 mg/dL (0.2-1.0)
[2020-11-01] MEDS: DEXTROSE 5%-WATER 1,000 ML IV SCH (06:39)
[2020-11-01] MEDS: FOLIC ACID 5 MG/ML 10 ML VIAL IV SCH (09:00)
[2020-11-01] MEDS: PHYTONADIONE 10 MG in SODIUM CHLORIDE 0.9% 50 ML SQ SCH (09:00)
[2020-11-01 09:03] VITALS: BP 121/59
[2020-11-01] MEDS: THIAMINE HCL 100 MG/ML 2ML VIAL IVP SCH (10:45)
[2020-11-01] MEDS: PANTOPRAZOLE 40 MG/VIAL IVP SCH ×2 (10:45→19:56)
[2020-11-01] MEDS: RIFAXIMIN 550 MG TABLET PO SCH ×2 (10:45→19:56)
[2020-11-01] MEDS: MULTIVITAMIN TABLET PO SCH (10:45)
[2020-11-01] MEDS: LEVETIRACETAM 500 MG in SODIUM CHLORIDE 0.9% 100 ML IV SCH ×2 (10:57→19:56)
[2020-11-01 12:18] VITALS: BP 111/81
[2020-11-01] MEDS: CEFTRIAXONE SODIUM 1 GM IVP SCH (15:11)
[2020-11-01 16:56] VITALS: BP 108/74
[2020-11-01] MEDS ORDERED: PHYTONADIONE 10 MG in SODIUM CHLORIDE 0.9% 50 ML SQ SCH (18:00)
[2020-11-01 19:00] VITALS: BP 92/55
[2020-11-01] MEDS: SUCRALFATE 1 GM TABLET PO SCH (19:56)
[2020-11-02] VITALS: BP 101/71
[2020-11-02] MEDS: LACTULOSE 20 GM/30 ML UDCUP PO SCH ×3 (03:27→22:00)
[2020-11-02 04:00] VITALS: BP 114/81
[2020-11-02 05:50] LABS: BASOPHILS % (AUTO) 1.5 % (0.0-5.0); EOSINOPHILS % (AUTO) 3.1 % (0.0-8.0); HEMATOCRIT 28.2 % (42-54); LYMPHOCYTES % (AUTO) 27.1 % (21.0-51.0); MEAN CORPUSCULAR HEMOGLOBIN 32.5 pg (27.0-33.0); MEAN CORPUSCULAR HGB CONC 32.3 g/dL (32.0-36.0); MEAN CORPUSCULAR VOLUME 100.7 fL (79-99); MONOCYTES % (AUTO) 21.8 % (3.0-13.0); NEUTROPHILS % (AUTO) 42.1 % (40.0-77.0); PLATELET COUNT (AUTO) 79 K/uL (130-400); RED CELL DISTRIBUTION WIDTH 21.3 % (11.0-15.5); WHITE BLOOD COUNT (AUTO) 4.5 K/uL (4.8-10.8)
[2020-11-02 06:37] LABS: ALBUMIN 1.7 g/dL (3.5-5.0); CREATININE 0.6 mg/dL (0.5-1.5); TOTAL PROTEIN, SERUM 6.7 g/dL (6.0-8.3)
[2020-11-02 06:59] LABS: POTASSIUM 2.7 mmol/L (3.5-5.1)
[2020-11-02 07:01] LABS: BILIRUBIN,TOTAL 23.7 mg/dL (0.2-1.0)
[2020-11-02] MEDS: POTASSIUM CHLORIDE 20MEQ/100ML 100 ML IV PRN ×2 (07:29→10:48)
[2020-11-02] MEDS: POTASSIUM CHLORIDE 20 MEQ ERTAB PO PRN ×2 (07:29→10:47)
[2020-11-02 08:00] VITALS: BP 114/80
[2020-11-02] MEDS: SUCRALFATE 1 GM TABLET PO SCH ×3 (10:47→21:00)
[2020-11-02] MEDS: THIAMINE HCL 100 MG/ML 2ML VIAL IVP SCH (10:47)
[2020-11-02] MEDS: PANTOPRAZOLE SODIUM 40 MG TABLET.DR PO SCH ×2 (10:48→18:30)
[2020-11-02] MEDS: RIFAXIMIN 550 MG TABLET PO SCH ×2 (10:48→21:00)
[2020-11-02] MEDS: MULTIVITAMIN TABLET PO SCH (10:54)
[2020-11-02] MEDS ORDERED: MAGNESIUM 2GM PREMIX 50ML 50 ML IV SCH (11:15)
[2020-11-02] MEDS: LEVETIRACETAM 500 MG in SODIUM CHLORIDE 0.9% 100 ML IV SCH ×2 (11:44→13:22)
[2020-11-02 12:00] VITALS: BP 97/62
[2020-11-02] MEDS: FOLIC ACID 5 MG/ML 10 ML VIAL IV SCH (13:21)
[2020-11-02] MEDS: CEFTRIAXONE SODIUM 1 GM IVP SCH (13:22)
[2020-11-02 13:57] LABS: CREATININE 0.6 mg/dL (0.5-1.5)
[2020-11-02 14:49] LABS: POTASSIUM 2.9 mmol/L (3.5-5.1)
[2020-11-02 16:00] VITALS: BP 92/52
[2020-11-02 20:24] VITALS: BP 110/70
[2020-11-03 00:20] VITALS: BP 108/72
[2020-11-03] MEDS: LACTULOSE 20 GM/30 ML UDCUP PO SCH ×3 (03:05→21:45)
[2020-11-03 04:28] VITALS: BP 112/74
[2020-11-03 07:07] LABS: BASOPHILS % (AUTO) 1.5 % (0.0-5.0); EOSINOPHILS % (AUTO) 1.5 % (0.0-8.0); HEMATOCRIT 28.9 % (42-54); LYMPHOCYTES % (AUTO) 19.6 % (21.0-51.0); MEAN CORPUSCULAR HEMOGLOBIN 32.2 pg (27.0-33.0); MEAN CORPUSCULAR HGB CONC 32.5 g/dL (32.0-36.0); MONOCYTES % (AUTO) 16.3 % (3.0-13.0); NEUTROPHILS % (AUTO) 56.7 % (40.0-77.0); PLATELET COUNT (AUTO) 84 K/uL (130-400); RED BLOOD CELL COUNT(AUTO) 2.92 MIL/uL (4.50-6.20); RED CELL DISTRIBUTION WIDTH 21.2 % (11.0-15.5); WHITE BLOOD COUNT (AUTO) 6.2 K/uL (4.8-10.8)
[2020-11-03 07:39] LABS: CREATININE 0.5 mg/dL (0.5-1.5); MAGNESIUM 1.8 mg/dL (1.80-2.40)
[2020-11-03 07:47] LABS: POTASSIUM 2.8 mmol/L (3.5-5.1)
[2020-11-03 08:00] VITALS: BP 110/71
[2020-11-03] MEDS: FOLIC ACID 5 MG/ML 10 ML VIAL IV SCH (09:00)
[2020-11-03] MEDS: MAGNESIUM 2GM PREMIX 50ML 50 ML IV PRN (10:37)
[2020-11-03] MEDS: LEVETIRACETAM 500 MG in SODIUM CHLORIDE 0.9% 100 ML IV SCH ×2 (10:37→21:45)
[2020-11-03] MEDS: THIAMINE HCL 100 MG/ML 2ML VIAL IVP SCH (10:39)
[2020-11-03] MEDS: OCTREOTIDE ACETATE 1,250 MCG in SODIUM CHLORIDE 0.9% 250 ML IV SCH (10:49)
[2020-11-03] MEDS: CEFTRIAXONE SODIUM 1 GM IVP SCH ×2 (11:18→12:34)
[2020-11-03] MEDS: SUCRALFATE 1 GM TABLET PO SCH ×3 (11:19→21:46)
[2020-11-03] MEDS: PANTOPRAZOLE SODIUM 40 MG TABLET.DR PO SCH ×2 (11:19→12:36)
[2020-11-03] MEDS: POTASSIUM CHLORIDE 20 MEQ ERTAB PO SCH ×2 (11:20→12:35)
[2020-11-03 12:00] VITALS: BP_SYST 109; BP_SYST 126; BP_DIAS 64; BP_DIAS 67
[2020-11-03] MEDS: RIFAXIMIN 550 MG TABLET PO SCH ×2 (12:36→21:46)
[2020-11-03] MEDS: MULTIVITAMIN TABLET PO SCH (12:36)
[2020-11-03 16:00] VITALS: BP 106/65
[2020-11-03] MEDS: POTASSIUM CHLORIDE 20MEQ/100ML 100 ML IV PRN ×2 (16:32→21:46)
[2020-11-03 16:55] LABS: CREATININE 0.9 mg/dL (0.5-1.5)
[2020-11-03 16:58] LABS: POTASSIUM 2.4 mmol/L (3.5-5.1)
[2020-11-03] MEDS ORDERED: POTASSIUM CHLORIDE 20 MEQ ERTAB PO SCH (18:45)
[2020-11-03 19:00] VITALS: BP 98/62
[2020-11-04] VITALS: BP 103/66
[2020-11-04] MEDS: POTASSIUM CHLORIDE 20MEQ/100ML 100 ML IV PRN (00:21)
[2020-11-04] MEDS: LACTULOSE 20 GM/30 ML UDCUP PO SCH ×3 (03:40→21:15)
[2020-11-04 03:58] VITALS: BP 108/64
[2020-11-04] MEDS: PANTOPRAZOLE SODIUM 40 MG TABLET.DR PO SCH ×2 (05:03→17:56)
[2020-11-04] MEDS ORDERED: LORAZEPAM 2 MG/ML 1 ML VIAL IVP PRN ×2 (05:15)
[2020-11-04] MEDS ORDERED: CHLORDIAZEPOXIDE HCL 25 MG CAP PO PRN ×2 (05:15)
[2020-11-04] MEDS ORDERED: PHARMACY COMMUNICATION MISC PRN (05:15)
[2020-11-04 06:46] LABS: BASOPHILS % (AUTO) 1.2 % (0.0-5.0); HEMATOCRIT 28.7 % (42-54); LYMPHOCYTES % (AUTO) 13.8 % (21.0-51.0); MEAN CORPUSCULAR HEMOGLOBIN 32.4 pg (27.0-33.0); MEAN CORPUSCULAR HGB CONC 32.4 g/dL (32.0-36.0); MONOCYTES % (AUTO) 16.4 % (3.0-13.0); NEUTROPHILS % (AUTO) 62.7 % (40.0-77.0); PLATELET COUNT (AUTO) 99 K/uL (130-400); RED BLOOD CELL COUNT(AUTO) 2.87 MIL/uL (4.50-6.20); RED CELL DISTRIBUTION WIDTH 21.8 % (11.0-15.5); WHITE BLOOD COUNT (AUTO) 8.6 K/uL (4.8-10.8)
[2020-11-04 07:09] LABS: CREATININE 0.7 mg/dL (0.5-1.5); POTASSIUM 3.5 mmol/L (3.5-5.1)
[2020-11-04 08:24] VITALS: BP 112/57
[2020-11-04] MEDS: LEVETIRACETAM 500 MG in SODIUM CHLORIDE 0.9% 100 ML IV SCH ×2 (09:00→21:16)
[2020-11-04] MEDS: SUCRALFATE 1 GM TABLET PO SCH ×3 (09:00→21:15)
[2020-11-04] MEDS: THIAMINE HCL 100 MG/ML 2ML VIAL IVP SCH (10:49)
[2020-11-04] MEDS: MULTIVITAMIN TABLET PO SCH (10:49)
[2020-11-04] MEDS: FOLIC ACID 5 MG/ML 10 ML VIAL IV SCH (10:49)
[2020-11-04] MEDS: RIFAXIMIN 550 MG TABLET PO SCH ×2 (10:49→21:15)
[2020-11-04] MEDS ORDERED: DEXTROSE 5%-WATER 500 ML IV SCH (11:00)
[2020-11-04 13:41] VITALS: BP 112/76
[2020-11-04 17:49] VITALS: BP 109/72
[2020-11-04] MEDS: CEFTRIAXONE SODIUM 1 GM IVP SCH (17:56)
[2020-11-04 20:00] VITALS: BP 113/77
[2020-11-05] VITALS (7 sets, daily range): BP systolic 100–133; BP diastolic 64–83
[2020-11-05] MEDS: LACTULOSE 20 GM/30 ML UDCUP PO SCH ×3 (03:30→23:03)
[2020-11-05] MEDS: PANTOPRAZOLE SODIUM 40 MG TABLET.DR PO SCH ×2 (05:56→15:30)
[2020-11-05 06:32] LABS: BASOPHILS % (AUTO) 1.2 % (0.0-5.0); EOSINOPHILS % (AUTO) 1.1 % (0.0-8.0); HEMATOCRIT 29.1 % (42-54); LYMPHOCYTES % (AUTO) 10.7 % (21.0-51.0); MEAN CORPUSCULAR HGB CONC 32.6 g/dL (32.0-36.0); MONOCYTES % (AUTO) 11.1 % (3.0-13.0); NEUTROPHILS % (AUTO) 73.4 % (40.0-77.0); PLATELET COUNT (AUTO) 107 K/uL (130-400); RED BLOOD CELL COUNT(AUTO) 2.88 MIL/uL (4.50-6.20); RED CELL DISTRIBUTION WIDTH 22.1 % (11.0-15.5); WHITE BLOOD COUNT (AUTO) 10.5 K/uL (4.8-10.8)
[2020-11-05 07:12] LABS: CREATININE 0.7 mg/dL (0.5-1.5); MAGNESIUM 1.6 mg/dL (1.80-2.40)
[2020-11-05 07:22] LABS: POTASSIUM 2.8 mmol/L (3.5-5.1)
[2020-11-05] MEDS: LEVETIRACETAM 500 MG in SODIUM CHLORIDE 0.9% 100 ML IV SCH ×2 (09:00→23:03)
[2020-11-05] MEDS: MULTIVITAMIN TABLET PO SCH (09:00)
[2020-11-05] MEDS: THIAMINE HCL 100 MG/ML 2ML VIAL IVP SCH (11:00)
[2020-11-05] MEDS: FOLIC ACID 5 MG/ML 10 ML VIAL IV SCH (11:01)
[2020-11-05] MEDS: SUCRALFATE 1 GM TABLET PO SCH ×3 (11:01→23:03)
[2020-11-05] MEDS: POTASSIUM CHLORIDE 10% ELIXIR 20 MEQ/15 ML UDCUP PO PRN (11:01)
[2020-11-05] MEDS: RIFAXIMIN 550 MG TABLET PO SCH ×2 (11:02→23:03)
[2020-11-05] MEDS: MAGNESIUM 2GM PREMIX 50ML 50 ML IV PRN (11:02)
[2020-11-05] MEDS: CEFTRIAXONE SODIUM 1 GM IVP SCH (12:30)
[2020-11-05] MEDS: POTASSIUM CHLORIDE 20 MEQ ERTAB PO PRN ×2 (15:13→23:34)
[2020-11-05] MEDS ORDERED: LIDOCAINE HCL-MPF 1% 2ML VIAL ONE ×2 (21:24→23:26)
[2020-11-05] MEDS: POTASSIUM CHLORIDE 20MEQ/100ML 100 ML IV PRN ×2 (21:27→23:34)
[2020-11-06] MEDS: POTASSIUM CHLORIDE 20 MEQ ERTAB PO PRN (00:25)
[2020-11-06] MEDS: LACTULOSE 20 GM/30 ML UDCUP PO SCH ×2 (03:14→12:19)
[2020-11-06 04:15] VITALS: BP 114/62
[2020-11-06 04:35] LABS: BASOPHILS % (AUTO) 0.6 % (0.0-5.0); EOSINOPHILS % (AUTO) 0.8 % (0.0-8.0); HEMATOCRIT 27.5 % (42-54); LYMPHOCYTES % (AUTO) 12.5 % (21.0-51.0); MEAN CORPUSCULAR HGB CONC 32.4 g/dL (32.0-36.0); MEAN CORPUSCULAR VOLUME 101.9 fL (79-99); MONOCYTES % (AUTO) 11.5 % (3.0-13.0); PLATELET COUNT (AUTO) 124 K/uL (130-400); RED CELL DISTRIBUTION WIDTH 22.5 % (11.0-15.5); WHITE BLOOD COUNT (AUTO) 11.8 K/uL (4.8-10.8)
[2020-11-06 05:04] LABS: ALBUMIN 1.5 g/dL (3.5-5.0); CREATININE 1.2 mg/dL (0.5-1.5); MAGNESIUM 2.1 mg/dL (1.80-2.40); POTASSIUM 3.8 mmol/L (3.5-5.1)
[2020-11-06 05:51] LABS: BILIRUBIN,TOTAL 26.1 mg/dL (0.2-1.0)
[2020-11-06] MEDS: PANTOPRAZOLE SODIUM 40 MG TABLET.DR PO SCH ×2 (06:24→17:06)
[2020-11-06 08:05] VITALS: BP 103/69
[2020-11-06] MEDS: THIAMINE HCL 100 MG/ML 2ML VIAL IVP SCH (09:00)
[2020-11-06] MEDS: RIFAXIMIN 550 MG TABLET PO SCH (09:00)
[2020-11-06] MEDS: MULTIVITAMIN TABLET PO SCH (09:00)
[2020-11-06] MEDS: SUCRALFATE 1 GM TABLET PO SCH ×2 (09:00→14:58)
[2020-11-06] MEDS: FOLIC ACID 5 MG/ML 10 ML VIAL IV SCH (09:00)
[2020-11-06] MEDS: LEVETIRACETAM 500 MG in SODIUM CHLORIDE 0.9% 100 ML IV SCH (09:33)
[2020-11-06 12:00] VITALS: BP 111/75
[2020-11-06] MEDS: CEFTRIAXONE SODIUM 1 GM IVP SCH (12:19)
== END 2020-11-06 19:15 | disposition home health service (06) | DRG 377 ==
LOC: EDH 12:35 → EDHIP 12:36 → 3CH 18:08 → 2DH 10-28 15:22 → 3CH 10-31 17:41
PROVIDERS: ADMIT Family Medicine; ATTEND Family Medicine
PROC: 0DJ08ZZ Inspection of Upper Intestinal Tract, Via Natural or Artificial Opening Endoscopic (ICD-10-PCS; principal; 2020-10-27)
PROC: 30233N1 Transfusion of Nonautologous Red Blood Cells into Peripheral Vein, Percutaneous Approach (ICD-10-PCS; 2020-10-28)
PROC: 30233R1 Transfusion of Nonautologous Platelets into Peripheral Vein, Percutaneous Approach (ICD-10-PCS; 2020-10-28)
PROC: 30233K1 Transfusion of Nonautologous Frozen Plasma into Peripheral Vein, Percutaneous Approach (ICD-10-PCS; 2020-10-29)
DX: K29.01 Acute gastritis with bleeding (principal); A41.9 Sepsis, unspecified organism; D65 Disseminated intravascular coagulation [defibrination syndrome]; E43 Unspecified severe protein-calorie malnutrition; J69.0 Pneumonitis due to inhalation of food and vomit; D62 Acute posthemorrhagic anemia; K86.1 Other chronic pancreatitis; K76.6 Portal hypertension; D68.9 Coagulation defect, unspecified; K72.90 Hepatic failure, unspecified without coma; K70.30 Alcoholic cirrhosis of liver without ascites; K70.10 Alcoholic hepatitis without ascites; Z68.27 Body mass index [BMI] 27.0-27.9, adult; Z20.822 Contact with and (suspected) exposure to COVID-19; R04.0 Epistaxis; Z91.19 Patient's noncompliance with other medical treatment and regimen; Z74.01 Bed confinement status; Y90.8 Blood alcohol level of 240 mg/100 ml or more; K82.8 Other specified diseases of gallbladder; G40.909 Epilepsy, unspecified, not intractable, without status epilepticus; F10.229 Alcohol dependence with intoxication, unspecified; E87.6 Hypokalemia; E83.42 Hypomagnesemia; Z86.73 Personal history of transient ischemic attack (TIA), and cerebral infarction without residual deficits; R53.81 Other malaise; Z79.899 Other long term (current) drug therapy
CPT/HCPCS: 36415; 36430; 43235; 71045; 76700; 80048; 80053; 80076; 82105; 82140; 82948; 83605; 83735; 84100; 84132; 84145; 85014; 85018; 85025; 85027; 85049; 85384; 85610; 85730; 86850; 86900; 86901; 86923; 86927; 87040; 87426; 92526; 92610; 99291; A4606; C9113; G0378; J0696; J1200; J1953; J2060; J2354; J2370; J2405; J2543; J2704; J3411; J3430; J3475; J3480; J3490; J7030; J7040; J7050; J7070; J7120; P9012; P9016; P9017; P9034; U0003